=== PATIENT | female | born 1990 | race Hispanic/Latino ===

== ENCOUNTER 2018-04-06 18:15 | Emergency (ER) | payer OTHER ==
[~2018-04-06] VITALS: Ht 157.5 cm; Wt 122.0 kg
[~2018-04-06 18:15] MED LIST: PRENATAL1 TA1
[2018-04-06 19:06] LABS: INFLUENZA A NONE DETECTED (NONE DETECT); INFLUENZA B NONE DETECTED (NONE DETECT)
[2018-04-06] MEDS ORDERED: AMOXICILLIN875 MG PO (19:21)
[2018-04-06 19:36] VITALS: BP 138/79
== END 2018-04-06 20:00 | disposition home or self-care (01) ==
LOC: ED 18:15
DX: J02.9 Acute pharyngitis, unspecified (principal); R50.9 Fever, unspecified; B34.9 Viral infection, unspecified; R05 Cough; R09.89 Other specified symptoms and signs involving the circulatory and respiratory systems

== ENCOUNTER 2018-05-22 19:36 | Emergency (ER) | payer OTHER ==
[~2018-05-22] VITALS: Ht 157.5 cm; Wt 128.0 kg
[~2018-05-22 19:36] MED LIST changes: +AMOXICILLIN875 MG PO
[2018-05-22] MEDS ORDERED: IBUPROFEN600 MG PO (21:26)
[2018-05-22 21:46] VITALS: BP 119/78
== END 2018-05-22 21:55 | disposition home or self-care (01) ==
LOC: ED 19:36
DX: M23.91 Unspecified internal derangement of right knee (principal); M25.561 Pain in right knee; M79.604 Pain in right leg
CPT/HCPCS: L1830

== ENCOUNTER 2018-06-28 09:56 | Emergency (ER) | payer OTHER ==
[~2018-06-28] VITALS: Ht 157.5 cm; Wt 127.0 kg
[~2018-06-28 09:56] MED LIST changes: +IBUPROFEN600 MG PO
[2018-06-28] MEDS ORDERED: AMOXICILLIN500 M2 PO (10:16)
[2018-06-28 10:23] VITALS: BP 132/79
== END 2018-06-28 10:28 | disposition home or self-care (01) ==
LOC: ED 09:56
DX: J02.0 Streptococcal pharyngitis (principal); I10 Essential (primary) hypertension; E03.9 Hypothyroidism, unspecified; R50.9 Fever, unspecified; H92.01 Otalgia, right ear

== ENCOUNTER 2019-04-23 08:53 | Emergency (ER) | payer OTHER ==
[~2019-04-23] VITALS: Ht 157.5 cm; Wt 129.0 kg
[~2019-04-23 08:53] MED LIST changes: +AMOXICILLIN500 M2 PO
[2019-04-23] MEDS ORDERED: TOPAMAX100 MG PO (09:03)
[2019-04-23] MEDS ORDERED: AMOXICILLIN500 MG PO (09:16)
[2019-04-23] MEDS ORDERED: LORTAB 1010 MG PO (09:16)
[2019-04-23 09:22] VITALS: BP 136/84
== END 2019-04-23 09:36 | disposition home or self-care (01) ==
LOC: ED 08:53
DX: K04.7 Periapical abscess without sinus (principal)

== ENCOUNTER 2021-05-03 00:31 | Emergency (ER) | payer OTHER ==
[~2021-05-03] VITALS: Ht 157.5 cm; Wt 128.0 kg
[~2021-05-03 00:31] MED LIST changes: +AMOXICILLIN500 MG PO; +LORTAB 1010 MG PO; +TOPAMAX100 MG PO
[2021-05-03] MEDS ORDERED: NAPROXEN500 MG PO (01:47)
[2021-05-03 04:05] VITALS: BP 135/77
[2021-05-03] MEDS ORDERED: GLIPIZIDE5 M2 PO (06:16)
== END 2021-05-03 04:05 | disposition home or self-care (01) ==
LOC: ED 00:31
DX: S40.021A Contusion of right upper arm, initial encounter (principal); I10 Essential (primary) hypertension; E11.9 Type 2 diabetes mellitus without complications; E03.9 Hypothyroidism, unspecified; W18.39XA Other fall on same level, initial encounter; Y92.480 Sidewalk as the place of occurrence of the external cause; Z86.16 Personal history of COVID-19

== ENCOUNTER 2021-05-30 07:04 | Observation (INO) | payer OTHER ==
[2021-05-30] VITALS (9 sets, daily range): BP systolic 94–154; BP diastolic 56–93
[~2021-05-30] VITALS: Ht 157.5 cm; Wt 127.9 kg
[~2021-05-30 07:04] MED LIST changes: +GLIPIZIDE5 M2 PO; +IBUPROFEN200 MG PO; +NAPROXEN500 MG PO
[2021-05-30] MEDS ORDERED: PERCOCET 5/325M1 TAB PO (10:29)
--- NOTE | 2021-05-30 14:04 | NUR ---
REPORT RECIVED FROM YORDAN SKELTON FROM OR
--- NOTE | 2021-05-30 14:06 | NUR ---
ORIENTATED PT TO ROOM, CALL LIGHT AND PERSONAL ITEMS ARE WITHIN REACH. IV SITE 20G ON THE LAC INFUSING D5 1/2 PER EMAR ORDER. PT IS ON ROOM AIR. STATES N BUT NO V. CALL LIGHT WITHIN REACH
--- NOTE | 2021-05-30 15:00 | NUR ---
PT WITH AT BEDSIDE. ASSESSMENT ALLOWED AT THIS TIME. LUNG SOUNDS ARE CLEAR UPPER LOWER LOBES ANTERIORLY/ POSTERIORLY. BOWEL SOUNDS ACTIVE X4, BELLY TENDER WITH 7 INCSIONS, DRESSING IS CDI. PT REPORTS PAIN 9/10 DILAUDID 1MG GIVEN ALONG WITH ZOFRAN. PT HAS A COUGH THATS NON PRODUTIVE. BREATHING PATTERN IS EVEN AND UNLABORED. PULSES STRONG RADIAL AND PEDAL. IV SITE LOCATED LAC 20G D5 1/2 PER EMAR ORDER. INFUSING WITH NO COMPLICATIONS ENCOURAGED PT TO USE CALL LIGHT. CALL LIGHT AND PERSONAL ITEMS WITHIN REACH.
--- NOTE | 2021-05-30 16:00 | NUR ---
PT REPORTS PAIN IS BETTER TO A 4/10. LABOR SUPERVISOR FRANCK HELPED PUT ABD BINDER IN PLACE. RN MARYURI WAS ABLE TO BRING ONE FROM THE ICU. PT SAYS HELPS WITH MOVING. STATES NO OTHER NEEDS AT THIS TIME CALL LIGHT WITHIN REACH.
--- NOTE | 2021-05-30 19:50 | NUR ---
PT RESTING IN BED, NO SIGNS OF DISTRESS NOTED, RESP EVEN AND UNLABORED. PT ALERT AND ORIENTED X4, DISCUSSED POC, PT HAS ABD BINDER IN PLACE. ASSESSED DRESSINGS TO ABD, PT HAS 7 INCISIONS WITH DRESSINGS CDI, BS ACTIVE. IS BROUGHT TO BEDSIDE VOLUME 1500ML, NO EDEMA. PT DENIES ANY PAIN AT THIS TIME. ASSESSMENT COMPLETED, CALL LIGHT IN REACH,CONTINUE TO MONITOR.
--- NOTE | 2021-05-30 21:00 | NUR ---
PT MEDICATED FOR NAUSEA, ZOFRAN GIVEN. CALL LIGHT IN REACH,CONTINUE TO MONITOR.
--- NOTE | 2021-05-31 | NUR ---
PT RESTING IN BED, VITALS OBTAINED, PT DECLINED TORADOL, CALL LIGHT IN REACH,CONTINUE TO MONITOR.
[2021-05-31 03:50] VITALS: BP 123/76
[2021-05-31 05:11] LABS: HEMATOCRIT 33.9 % (37.0-47.0); HEMOGLOBIN 10.3 g/dl (12.0-16.0); MEAN CELL VOLUME 79.6 fL CALC (80.0-100.0); MEAN CORPUSCULAR HGB 24.2 pG CALC (26.0-32.0); MEAN CORPUSCULAR HGB CONC 30.4 g/dL CAL (32.0-36.0); RED BLOOD COUNT 4.26 mill/uL (4.20-5.60); RED CELL DISTRI WIDTH 17.6 % (11.5-15.5)
[2021-05-31 05:25] LABS: ANION GAP 11 (6-22 (CALC)); BUN 6 mg/dL (7-17); BUN/CREATININE RATIO 11 (12-20 (CALC)); CARBON DIOXIDE 24 mmol/l (22-30); CHLORIDE 107 mmol/l (95-108); CREATININE 0.5 mg/dL (0.5-1.0); GFR > 60 ML/MIN (>=60 (CALC)); GFR FOR AFR.AMER. > 60 ML/MIN (>=60 (CALC)); POTASSIUM 3.9 mmol/l (3.5-5.1); SODIUM 137 mmol/l (137-146)
--- NOTE | 2021-05-31 06:00 | NUR ---
IV ZOSYN INFUSING, PT DECLINED TORADOL, NO SIGNS OF DISTRESS NOTED, RESP EVEN AND UNLABORED. CALL LIGHT IN REACH,CONTINUE TO MONITOR.
--- NOTE | 2021-05-31 06:00 | NUR ---
PT RESTING IN BED, DENIES ANY PAIN, PT DECLINED TORADOL. CALL LIGHT IN REACH,CONTINUE TO MONITOR.
[2021-05-31 07:47] VITALS: BP 125/79
--- NOTE | 2021-05-31 08:00 | NUR ---
SHIFT CHANGE REPORT, PT AWAKE ALERT AND ORIENTED SITTING UP IN BED, IVF INFUSING, CALL AKBAR IN REACH AND BED LOCKED IN LOWEST POSITION.
[2021-05-31 10:53] VITALS: BP 131/76
[2021-05-31] MEDS ORDERED: ZOFRAN4 M1 PO (11:26)
--- NOTE | 2021-05-31 13:46 | NUR ---
Discharge instructions given. Patient verbalizes understanding of same. Discharged in stable condition via Wheelchair to Home with spouse. All belongings sent with pt.
== END 2021-05-31 13:15 | disposition home or self-care (01) ==
LOC: ORM 07:04 → MS2 14:19
PROVIDERS: ADMIT Surgery; ATTEND Hospitalist
DX: K43.2 Incisional hernia without obstruction or gangrene (principal); I10 Essential (primary) hypertension; E11.9 Type 2 diabetes mellitus without complications; E03.9 Hypothyroidism, unspecified; Z79.84 Long term (current) use of oral hypoglycemic drugs
CPT/HCPCS: J0131; J1100; J1650

== ENCOUNTER 2022-03-20 22:54 | Emergency (ER) | payer OTHER ==
[~2022-03-20] VITALS: Ht 157.5 cm; Wt 135.3 kg
[~2022-03-20 22:54] MED LIST changes: +PERCOCET 5/325M1 TAB PO; +ZOFRAN4 M1 PO
[2022-03-20 23:02] VITALS: BP 147/94
[2022-03-20 23:15] VITALS: BP 124/86
[2022-03-20 23:30] VITALS: BP 132/93
[2022-03-20 23:34] LABS: IMMATURE GRANULOCYTES 0.2 % (0.0-5.0); MEAN CORPUSCULAR HGB 30.4 pG CALC (26.0-32.0); MEAN CORPUSCULAR HGB CONC 32.5 g/dL CAL (32.0-36.0); NEUT# 5.55 thou/uL (2.00-7.15); RED BLOOD COUNT 4.31 mill/uL (4.20-5.60)
[2022-03-20 23:36] LABS: HEMATOCRIT 40.3 % (37.0-47.0); HEMOGLOBIN 13.1 g/dl (12.0-16.0); MEAN CELL VOLUME 93.5 fL CALC (80.0-100.0)
[2022-03-20 23:45] VITALS: BP 125/84
[2022-03-20 23:46] LABS: ALKALINE PHOSPHATASE 107 u/l (38-126); AMYLASE 66 u/l (30-110); ANION GAP 16 (6-22 (CALC)); BUN 15 mg/dL (7-17); BUN/CREATININE RATIO 19 (12-20 (CALC)); CARBON DIOXIDE 22 mmol/l (22-30); CHLORIDE 102 mmol/l (95-108); CREATININE 0.8 mg/dL (0.5-1.0); GFR FOR AFR.AMER. > 60 ML/MIN (>=60 (CALC)); GFR OTHER RACES > 60 ML/MIN (>=60 (CALC)); LIPASE 81 u/l (23-300); SGOT/AST 47 u/l (14-36); SODIUM 135 mmol/l (137-146); TOTAL PROTEIN 7.7 g/dL (6.3-8.2)
[2022-03-20 23:48] LABS: BILIRUBIN, TOTAL 0.2 mg/dL (0.0-1.4)
[2022-03-20 23:58] LABS: MYOGLOBIN 11 ng/mL (0 - 62)
[2022-03-21] VITALS: BP 124/86
[2022-03-21 00:26] LABS: URINE BILIRUBIN - DIPSTICK NEGATIVE (NEGATIVE); URINE BLOOD DIPSTICK NEGATIVE (NEGATIVE); URINE COLOR YELLOW; URINE GLUCOSE - DIPSTICK >=1000 mg/dL (NEGATIVE); URINE KETONE TRACE mg/dL (NEGATIVE); URINE LEUK ESTERASE NEGATIVE (NEGATIVE); URINE PH 6.5 (4.5-8.0); URINE PROTEIN - DIPSTICK NEGATIVE (NEG-TRACE); URINE UROBILINOGEN - DIPSTICK 0.2 E.U./dL (0.2)
[2022-03-21] MEDS ORDERED: TIZANIDINE4 MG PO (00:29)
[2022-03-21] MEDS ORDERED: LISINOPRIL5 MG PO (00:29)
[2022-03-21 00:30] LABS: URINE NITRITE - DIPSTICK NEGATIVE (Negative)
[2022-03-21] MEDS ORDERED: VITAMIN D1.25 MG (00:30)
[2022-03-21] MEDS ORDERED: METOCLOPRAMIDE H5 MG PO (00:31)
[2022-03-21] MEDS ORDERED: METHIMAZOLE5 MG PO (00:31)
[2022-03-21 00:45] VITALS: BP 124/86
== END 2022-03-21 00:55 | disposition home or self-care (01) ==
LOC: ED 22:54
PROVIDERS: Emergency Medicine
DX: E11.65 Type 2 diabetes mellitus with hyperglycemia (principal); I10 Essential (primary) hypertension; E78.00 Pure hypercholesterolemia, unspecified; Z79.84 Long term (current) use of oral hypoglycemic drugs; Z20.822 Contact with and (suspected) exposure to COVID-19

== ENCOUNTER 2023-02-21 18:08 | Emergency (ER) | payer OTHER ==
[~2023-02-21] VITALS: Ht 157.5 cm; Wt 123.3 kg
[~2023-02-21 18:08] MED LIST changes: +AMOX/K CLAV875 M1 PO; +LISINOPRIL5 MG PO; +METFORMIN HCL1000 MG PO; +METHIMAZOLE5 MG PO; +METOCLOPRAMIDE H5 MG PO; +OZEMPIC 8 MG/3M1 INJ; +TIZANIDINE4 MG PO; +VITAMIN D1.25 MG; +ZPAK PO
[2023-02-21 18:15] VITALS: BP 123/88
[2023-02-21] MEDS ORDERED: LORTAB 1010 MG PO (18:23)
[2023-02-21] MEDS ORDERED: AMOXICILLIN500 MG PO (18:23)
[2023-02-21 18:34] VITALS: BP 123/88
== END 2023-02-21 18:35 | disposition home or self-care (01) ==
LOC: ED 18:08
DX: K04.7 Periapical abscess without sinus (principal); S02.5XXA Fracture of tooth (traumatic), initial encounter for closed fracture; I10 Essential (primary) hypertension; E11.9 Type 2 diabetes mellitus without complications; E78.00 Pure hypercholesterolemia, unspecified; X58.XXXA Exposure to other specified factors, initial encounter; Z79.84 Long term (current) use of oral hypoglycemic drugs

== ENCOUNTER 2023-12-16 17:14 | Observation (INO) | payer OTHER ==
[2023-12-16] VITALS (20 sets, daily range): BP systolic 89–136; BP diastolic 58–86
[~2023-12-16] VITALS: Ht 157.5 cm; Wt 95.6 kg
[~2023-12-16 17:14] MED LIST changes: +LEVAQUIN750 M1 PO; +MEDDOSEPAK PO; +PROAIR HFA IN; +TRAMADOL HYDROC50 M1 PO; +ZOFRAN4 MG/TAB PO
[2023-12-16] MEDS ORDERED: ONDANSETRON HCl 4 MG/2 ML SDV IV ONE (17:30)
[2023-12-16] MEDS ORDERED: HYDROmorphone HCL 2 MG/AMP IV ONE (17:30)
--- NOTE | 2023-12-16 17:33 | NUR ---
PATIENT CAME TO THE ED FOR ABDOMINAL PAIN. PATIENT REQUIRED ASSISTANCE AMBULATING. PATIENT STATES THE PAIN IN HER LOWER ABDOMIN IS SO BAD SHE CAN'T WALK. URINE SAMPLE PROIVIDED. BLOOD OBTAINED AFTER IV ACCESS ACHIEVED IN THE LEFT AC, 20G. GENESIS RUSSELL AT THE BEDSIDE TO ASSESS.
[2023-12-16 17:49] LABS: BASO% 0.4 % (0-3); EOS% 1.4 % (0-8); HEMATOCRIT 43.9 % (37.0-47.0); HEMOGLOBIN 14.8 g/dl (12.0-16.0); IMMATURE GRANULOCYTES 0.1 % (0.0-5.0); LYMPH% 23.7 % (15-41); MEAN CELL VOLUME 92.6 fL CALC (80.0-100.0); MEAN CORPUSCULAR HGB 31.2 pG CALC (26.0-32.0); MEAN CORPUSCULAR HGB CONC 33.7 g/dL CAL (32.0-36.0); MONO% 6.9 % (2-13); NEUT# 5.73 thou/uL (2.00-7.15); NEUT% 67.5 % (42-76); RED BLOOD COUNT 4.74 mill/uL (4.20-5.60); RED CELL DISTRI WIDTH 14.4 % (11.5-15.5)
[2023-12-16 17:51] LABS: URINE BLOOD DIPSTICK Negative (NEGATIVE); URINE GLUCOSE - DIPSTICK Negative (NEGATIVE); URINE KETONE 80 mg/dL (NEGATIVE); URINE LEUK ESTERASE Negative (NEGATIVE); URINE NITRITE - DIPSTICK Negative (Negative); URINE PROTEIN - DIPSTICK 100 mg/dL (NEG-TRACE); URINE SPECIFIC GRAVITY >=1.030
[2023-12-16 17:54] LABS: URINE COLOR Yellow
[2023-12-16 17:55] LABS: URINE RBC 0-2 RBC/hpf (0-5); URINE SQUAMOUS EPITHELIAL CELL FEW EPI/hpf (0-FEW); URINE WBC 0-2 WBC/hpf (0-5)
[2023-12-16 18:03] LABS: ALBUMIN 3.8 g/dL (3.2-5.0); CREATININE 0.5 mg/dL (0.5-1.0); POTASSIUM 3.3 mmol/l (3.5-5.1)
[2023-12-16 18:04] LABS: BILIRUBIN, TOTAL 0.8 mg/dL (0.02-1.3)
--- NOTE | 2023-12-16 19:10 | NUR ---
REPORT RECEIVED FROM Oscar VILLALOBOS RN
[2023-12-16] MEDS ORDERED: ASPIRIN 81 MG/TAB PO ONE (19:15)
[2023-12-16] MEDS ORDERED: SODIUM CHLORIDE 0.9% 1,000 ML IV ONE (19:15)
[2023-12-16] MEDS ORDERED: SODIUM CHLORIDE 0.9% 1,000 ML IV PRN (21:05)
[2023-12-16] MEDS ORDERED: ACETAMINOPHEN 325 MG/TAB PO PRN (21:05)
[2023-12-16] MEDS ORDERED: MAGNESIUM HYDROXIDE 30 ML UDC PO PRN (21:05)
[2023-12-16] MEDS ORDERED: LACTATED RINGER'S 1,000 ML IV PRN (21:10)
[2023-12-16] MEDS ORDERED: MORPHINE SULFATE 4 MG/ML VIAL IV PRN (21:10)
[2023-12-16] MEDS ORDERED: ONDANSETRON HCl 4 MG/2 ML SDV IV PRN (21:10)
[2023-12-16] MEDS ORDERED: traMADol HCL 50 MG/TAB PO PRN (21:10)
[2023-12-16] MEDS ORDERED: NITROGLYCERIN 0.4 MG/TAB SL PRN (21:45)
--- NOTE | 2023-12-16 21:56 | NUR ---
REPORT GIVEN TO Tiago BROWN RN
--- NOTE | 2023-12-16 22:35 | NUR ---
PATIENT TRASNPORTED TO [facility] ROOM 261, CARE HANDED OVER TO Tiago BROWN RN
[2023-12-17] VITALS (10 sets, daily range): BP systolic 91–118; BP diastolic 61–82
--- NOTE | 2023-12-17 00:30 | NUR ---
RECEIVED REPORT FROM NURSE KRYSTIAN SHEA ARRIVED MS UNIT AT 2220, PATIENT TARSNPORTED VIA WHEELCHAIR, ALERT ORTIENTED, AMBULATORY, IV ON LAC G 2O PATENT FLUSHES WELL, C/ PAIN ABDOMEN PS 7/10 PRN MORPHINE, GIVE, PATIENT ADMISSION ASSESSMENT COMPLETED, STARTED LR AT 100CC/HR INFUSING WELL, CALL LIGHT IN REACHED.
--- NOTE | 2023-12-17 04:19 | NUR ---
PATINET RESTING IN BED,EYES CLOSED, BREATHING EVEN UNALBORED CALL LIGHT IN REACHED.
[2023-12-17 06:30] LABS: BASO% 0.3 % (0-3); EOS% 1.4 % (0-8); HEMATOCRIT 39.6 % (37.0-47.0); IMMATURE GRANULOCYTES 0.2 % (0.0-5.0); LYMPH% 26.2 % (15-41); MEAN CELL VOLUME 94.1 fL CALC (80.0-100.0); MEAN CORPUSCULAR HGB 30.9 pG CALC (26.0-32.0); MEAN CORPUSCULAR HGB CONC 32.8 g/dL CAL (32.0-36.0); MONO% 8.3 % (2-13); NEUT# 4.09 thou/uL (2.00-7.15); NEUT% 63.6 % (42-76); RED BLOOD COUNT 4.21 mill/uL (4.20-5.60); RED CELL DISTRI WIDTH 14.6 % (11.5-15.5)
[2023-12-17 06:43] LABS: BILIRUBIN, TOTAL 0.6 mg/dL (0.02-1.3); CHOLESTEROL HDL RATIO 2.8 (<4.4 (CALC)); CREATININE 0.4 mg/dL (0.5-1.0); MAGNESIUM 1.7 mg/dL (1.6-2.3); POTASSIUM 3.5 mmol/l (3.5-5.1)
[2023-12-17 06:48] LABS: ALBUMIN 2.7 g/dL (3.2-5.0); TOTAL PROTEIN 5.9 g/dL (6.3-8.2)
--- NOTE | 2023-12-17 07:19 | NUR ---
BEDSIDE REPORT RECEIVED FROM OFF GOING NURSE. PATIENT AWAKE IN BED TALKING ON HER PHONE. DENIES PAIN AT THSI TIME BUT C/O DIZZINESS. PATIENT EDUCATED TO USE CALL LIGHT BEFORE GETTING UP OUT OF BED. PATIENT VERBALIZES UNDERSTANDING OF SAFETY EDUCATION. RESPIRATIONS EVENA ND UNLABORED ON ROOM AIR. IV FLUIDS IN PLACE. CALL LIGHT WITHIN REACH.
[2023-12-17] MEDS ORDERED: ASPIRIN 81 MG/TAB PO SCH (09:00)
[2023-12-17] MEDS ORDERED: PANTOPRAZOLE SODIUM Sesquihydr 40 MG/TAB PO SCH (09:00)
--- NOTE | 2023-12-17 09:38 | NUR ---
PATENT UP TO SHOWER WITH ASSIST OF SPOUSE. BED LINENS CHANGED. PATIENT DENIES PAIN OR DISCOMFORT AT THIS TIME. SFATEY MEASURES IN PLACE. CALL LIGHT WITHIN REACH.
--- NOTE | 2023-12-17 16:35 | NUR ---
PATIENT AWAKE IN BED WITH SPOUSE AT BEDSIDE. PATIENT DENIES PAIN OR DISCOMFORT. RESPIRATIONS EVEN AND UNLABORED ON ROOM AIR. IV MAINTENANCE FLUIDS CONTINUE. CONTINUES TO HAVE POOR APPETITE BUT STATED "I ATE SOME LUNCH AND KEPT IT DOWN". CALL LIGHT WITHIN REACH.
--- NOTE | 2023-12-17 20:00 | NUR ---
RECEIVED REPORT FROM NURSE GUTIERREZ, PATIENT RESTING IN BED, WATCHING TV, DENIES CP, CALLED RADIOLOGY ABOUT ORDER CT OF ABDOMEN AWAITING A CALL BACK FROM THEM ABOUT THE TIME LINE TO DO CTA OF THE CHEST.PATINET ONGOING IV ON LAC G 20 LR AT 100CC/HR INFUSING WELL, DENIES CHEST DISCOMFORT AT THIS TIME, CALL LIGHT IN REACHED.
[2023-12-17] MEDS ORDERED: ENOXAPARIN SODIUM 40 MG/0.4 ML SYR SC SCH (21:00)
--- NOTE | 2023-12-18 00:14 | NUR ---
PATIENT BACK IN ROOM FROM CT, PATIENT BACK IN BED, BRAETHING EVEN UNALABORED CALL LIGHT IN REACHED.
[2023-12-18 00:29] VITALS: BP 104/67
[2023-12-18 03:55] VITALS: BP 110/74
--- NOTE | 2023-12-18 04:19 | NUR ---
PATIENT RESTING IN BED, EYES CLOSED, BREATHING EVEN UNLABORED CALLL LIGHT IN REACHED,
[2023-12-18 05:20] LABS: BASO% 0.6 % (0-3); EOS% 2.7 % (0-8); HEMATOCRIT 37.1 % (37.0-47.0); HEMOGLOBIN 12.3 g/dl (12.0-16.0); IMMATURE GRANULOCYTES 0.2 % (0.0-5.0); LYMPH% 40.2 % (15-41); MEAN CELL VOLUME 93.9 fL CALC (80.0-100.0); MEAN CORPUSCULAR HGB 31.1 pG CALC (26.0-32.0); MEAN CORPUSCULAR HGB CONC 33.2 g/dL CAL (32.0-36.0); MONO% 9.3 % (2-13); NEUT# 2.43 thou/uL (2.00-7.15); RED BLOOD COUNT 3.95 mill/uL (4.20-5.60); RED CELL DISTRI WIDTH 14.4 % (11.5-15.5)
[2023-12-18 05:47] LABS: ALBUMIN 2.6 g/dL (3.2-5.0); BILIRUBIN, TOTAL 0.5 mg/dL (0.02-1.3); CREATININE 0.4 mg/dL (0.5-1.0); MAGNESIUM 1.6 mg/dL (1.6-2.3); POTASSIUM 3.2 mmol/l (3.5-5.1); TOTAL PROTEIN 5.7 g/dL (6.3-8.2)
[2023-12-18 07:03] VITALS: BP 98/65
--- NOTE | 2023-12-18 07:54 | NUR ---
Pt sitting up in bed, watching TV. We spoke about her nutrition as she is a new gastric bypass surgical pt. Consult to fish stringer assembler, placed. No complaints, no distress. No further chest pain.
[2023-12-18 11:11] VITALS: BP 100/65
--- NOTE | 2023-12-18 12:15 | NUR ---
Pt resting in bed, speaking with dietary. Pt asks appropiate questions, No Dostress, no complaints.
[2023-12-18 14:57] VITALS: BP 121/79
--- NOTE | 2023-12-18 17:46 | NUR ---
Discharge instructions given. Patient verbalizes understanding of same. Discharged in stable condition via Wheelchair to Home with family. All belongings sent with pt.
--- NOTE | 2023-12-21 11:12 | NUR ---
Discharge follow up call completed 12/21/23. Patient states she is doing fairly well but is still experiencing periodic episodes of chest discomfort that vary in intensity. The intensity seems related to physical excertion by the patient. Pain will resolve if patient rests and stops the phsical activity. Patient has a follow up appointment with her tourist agent and also with her cloth grader supervisor. She is attempting to contact her PCP to schedule an appointment but has not received a call back from them yet. Patient was not prescribed medication at discharge. She was somewhat disgruntled by differing information regarding her EKG done in the ED. ED physican and hospitalist interpretations were different perpatient. Encourated patient to return to ED if chest pain intensified or would not resolve. Explained we were available to her if she had any needs or quesstions regarding her condition, No other needs were verbalized by patient at this time.
== END 2023-12-18 17:45 | disposition home or self-care (01) ==
LOC: ED 17:14 → ED-I 19:57 → ED 20:22 → MS2 20:23
PROVIDERS: Family Medicine; ADMIT Student in an Organized Health Care Education/Training Program; ATTEND Student in an Organized Health Care Education/Training Program
DX: R10.11 Right upper quadrant pain (principal); R10.31 Right lower quadrant pain; R07.81 Pleurodynia; I10 Essential (primary) hypertension; E11.43 Type 2 diabetes mellitus with diabetic autonomic (poly)neuropathy; K31.84 Gastroparesis; E03.9 Hypothyroidism, unspecified; E66.9 Obesity, unspecified; Z68.38 Body mass index [BMI] 38.0-38.9, adult; Z98.84 Bariatric surgery status; Z90.49 Acquired absence of other specified parts of digestive tract; Z90.710 Acquired absence of both cervix and uterus
CPT/HCPCS: G0378; J1650; Q9967

== ENCOUNTER 2024-03-19 16:32 | Emergency (ER) | payer OTHER ==
[~2024-03-19] VITALS: Ht 157.5 cm; Wt 84.3 kg
[2024-03-19] VITALS (15 sets, daily range): BP systolic 91–125; BP diastolic 58–79
[2024-03-19] MEDS ORDERED: OZEMPIC2 MG (16:46)
[2024-03-19 16:53] LABS: BASO% 0.4 % (0-3); EOS% 1.1 % (0-8); HEMATOCRIT 40.1 % (37.0-47.0); HEMOGLOBIN 13.9 g/dl (12.0-16.0); IMMATURE GRANULOCYTES 0.1 % (0.0-5.0); LYMPH% 34.4 % (15-41); MEAN CELL VOLUME 96.9 fL CALC (80.0-100.0); MEAN CORPUSCULAR HGB 33.6 pG CALC (26.0-32.0); MEAN CORPUSCULAR HGB CONC 34.7 g/dL CAL (32.0-36.0); NEUT# 4.07 thou/uL (2.00-7.15); RED BLOOD COUNT 4.14 mill/uL (4.20-5.60); RED CELL DISTRI WIDTH 13.2 % (11.5-15.5)
[2024-03-19 17:05] LABS: ALBUMIN 3.8 g/dL (3.2-5.0); BILIRUBIN, TOTAL 0.5 mg/dL (0.02-1.3); CREATININE 0.4 mg/dL (0.5-1.0); POTASSIUM 3.7 mmol/l (3.5-5.1)
[2024-03-19 17:28] LABS: URINE BLOOD DIPSTICK Negative (NEGATIVE); URINE GLUCOSE - DIPSTICK Negative (NEGATIVE); URINE KETONE 15 mg/dL (NEGATIVE); URINE LEUK ESTERASE Negative (NEGATIVE); URINE NITRITE - DIPSTICK Negative (Negative); URINE PROTEIN - DIPSTICK Negative (NEG-TRACE); URINE SPECIFIC GRAVITY 1.025
[2024-03-19 17:30] LABS: URINE COLOR Yellow
[2024-03-19] MEDS ORDERED: DEXTROSE 250 ML IV ONE (19:00)
== END 2024-03-19 20:50 | disposition home or self-care (01) ==
LOC: ED 16:32
PROVIDERS: Family Medicine
DX: E11.649 Type 2 diabetes mellitus with hypoglycemia without coma (principal); I10 Essential (primary) hypertension; Z79.85 Long-term (current) use of injectable non-insulin antidiabetic drugs; Z98.84 Bariatric surgery status